=== PATIENT | male | born 1950 ===

== ENCOUNTER 2017-03-01 07:29 | Day surgery (SDC) | payer MEDICARE ==
[2017-02-26 08:03] VITALS: BMI 35.9
[2017-03-01] MEDS ORDERED: Iodixanol 320 MG/ML 100 ML BOTTLE IV ONE (10:09)
[2017-03-01] MEDS ORDERED: Midazolam 2 MG/2 ML VIAL ONE (10:17)
[2017-03-01] MEDS ORDERED: Lidocaine 2% Inj (20ml) ONE (10:22)
[2017-03-01 10:55] LABS: ARTERIAL BLOOD GAS HCO3 27.4 mmol/L (21-28); ARTERIAL BLOOD GAS HEMOGLOBIN 15.1 g/dL (11.7-17.4); ARTERIAL BLOOD GAS O2 SAT 95.1 % (95-98); ARTERIAL BLOOD GAS PCO2 44 mm/Hg (35-45); ARTERIAL BLOOD GAS PH 7.42 (7.35-7.45); ARTERIAL BLOOD GAS TCO2 29.9 mmol/L (22-28)
[2017-03-01 10:59] LABS: VENOUS BLOOD GAS BASE EXCESS 2.8 mmol/L (0.0-2.0); VENOUS BLOOD GAS PCO2 47 mmHg (40-60); VENOUS BLOOD PH 7.39 (7.32-7.43)
[2017-03-01 16:12] VITALS: BP 136/71; PULSE 88; RESP 18; TEMP 98; O2SAT 99
--- NOTE | 2017-03-28 05:36 | CARDCATH ---
PROCEDURE DATE: 03/01/2017 PROCEDURES: 1. Right and left heart catheterization. 2. Coronary angiogram. REFERRING PHYSICIAN: 1. Dr. Williams Barger. 2. Dr. Kieran Hoskins. PERFORMING PHYSICIAN: Dr. Fede Dosih. CLINICAL INDICATIONS: 1. Severe aortic stenosis. 2. Non-ischemic cardiomyopathy with ejection fraction of 20%. 3. Hypertension. 4. Hyperlipidemia. PROCEDURE: After informed consent, the patient was prepped and draped in the usual sterile fashion. A 2% lidocaine was given in the right groin for local anesthesia. Using micropuncture technique, 6-[place] sheath was introduced into the right common femoral artery and 7-[place] sheath was introduced into the right common vein. Using the usual diagnostic catheters and catheters, both right and left heart catheterization and coronary angiogram was performed. The patient tolerated the procedure well. FINDINGS: Findings of the left heart catheterization: 1. Left main coronary artery is patent. 2. Mid LAD has a 50% non-obstructive stenosis. Proximal, distal LAD and diagonal branches are patent. 3. Left circumflex is large, dominant and patent. 4. Right coronary artery is small, nondominant, but patent. 5. LV ejection fraction is approximately 20%. Dilated LV global hypokinesis EDP is 14. No gradient across the aortic valve. Findings of the right heart catheterization: PA pressure 29/15. Cardiac output 6.7 litre/minute. Cardiac index 3.3. CALCULATIONS: Gradient across the aortic valve is 46. Calculated aortic valve area is 0.9 sq. cm. IMPRESSION: 1. Normal non-obstructive coronaries. 2. Severe aortic stenosis with aortic valve area of 0.9 sq. cm. 3. Non-ischemic cardiomyopathy with ejection fraction of 20%. I recommend transcatheter aortic valve replacement. Fede Doshi MD
== END 2017-03-01 15:15 | disposition home or self-care (01) ==
LOC: C.CATHLAB 07:29
PROVIDERS: ATTEND Internal Medicine Cardiovascular Disease
DX: I42.9 Cardiomyopathy, unspecified (principal); I35.0 Nonrheumatic aortic (valve) stenosis; I10 Essential (primary) hypertension; E89.6 Postprocedural adrenocortical (-medullary) hypofunction
CPT/HCPCS: 36600; 82803; 93460; 94770; C1714; C1760; C1766; C1769; C1887; J1644; J2250; J3010; Q9967

== ENCOUNTER 2017-04-02 10:54 | Inpatient (IN) | payer MEDICARE ==
[2017-04-02 10:55] VITALS: BMI 35.9
[2017-04-02] MEDS ORDERED: Sodium Chloride 0.9% 1,000 ML IV ONE (11:44)
[2017-04-02 12:13] LABS: BASO # 0.1 K/uL (0.0-0.2); BASO % 0.9 % (0.0-2.0); EOS # 0.4 K/uL (0.0-0.7); EOS % 4.7 % (0.0-4.0); HEMOGLOBIN 13.9 g/dL (12.0-18.0); LYMPH # 1.6 K/uL (1.0-4.3); LYMPH % 19.8 % (20.0-40.0); MEAN CELL VOLUME 85.1 fL (80.0-94.0); MEAN CORPUSCULAR HEMOGLOBIN 28.2 pg (27.0-31.0); MEAN CORPUSCULAR HGB CONC 33.2 g/dL (33.0-37.0); MEAN PLATELET VOLUME 9.1 fL (7.2-11.7); MONO # 0.9 K/uL (0.0-0.8); MONO % 11.3 % (0.0-10.0); NEUT # 5.1 K/uL (1.8-7.0); NEUT % 63.3 % (50.0-75.0); RBC 4.9 Mil/uL (4.40-5.90); RED CELL DISTRIBUTION WIDTH 13.9 % (11.5-14.5)
[2017-04-02 12:21] LABS: ALBUMIN 3.7 g/dL (3.5-5.0); PROTHROMBIN TIME 11.4 SECONDS (9.7-12.2)
[2017-04-02 12:23] LABS: GFR AFRICAN-AMERICAN > 60; GFR NON-AFRICAN AMERICAN > 60
[2017-04-02 12:24] LABS: ALB/GLOB RATIO 1.1 (1.0-2.1); ALT/SGPT 27 U/L (21-72); AST/SGOT 19 U/L (17-59); BLOOD UREA NITROGEN 10 mg/dL (9-20); CALCIUM 8.3 mg/dl (8.6-10.4); LIPASE 66 U/L (23-300)
[2017-04-02 12:32] LABS: B-TYPE NATRIURETIC PEPTIDE 490 pg/mL (0-900)
[2017-04-02 12:37] LABS: SQUAMOUS EPITHIAL < 1 /hpf (0-5); URINE BILIRUBIN NEGATIVE (NEGATIVE); URINE BLOOD NEGATIVE (NEGATIVE); URINE CLARITY Clear (Clear); URINE COLOR Colorless (YELLOW); URINE GLUCOSE (UA) NORMAL (Normal); URINE LEUKOCYTE ESTERASE NEG Leu/uL (Negative); URINE NITRATE NEGATIVE (NEGATIVE); URINE PROTEIN NEGATIVE (NEGATIVE); URINE UROBILINOGEN NORMAL mg/dL (0.2-1.0)
--- NOTE | 2017-04-02 12:55 | C.PDOC ---
History Of Present Illness 67 year old male was referred to the ED by Dr. Doshi for complaints of abdominal pain for "more than a week." As per patient's , patient was seen on 2016 for abdominal pain and had outpatient CT scan, doctor was concerned and sent him back. Patient has a history of CHF and is experiencing SOB. Patient denies vomiting, diarrhea, or fever. Time Seen by Provider: 04/02/17 11:30 Chief Complaint (Nursing): Abdominal Pain History Per: Family ( ) History/Exam Limitations: no limitations Onset/Duration Of Symptoms: Days ("more than one week) Current Symptoms Are (Timing): Still Present Location Of Pain/Discomfort: Diffuse Radiation Of Pain To:: None Quality Of Discomfort: "Pain" Associated Symptoms: denies: Fever, Chills, Nausea, Vomiting, Diarrhea, Chest Pain Recent travel outside of the [place]: No Additional History Per: Prior Records Past Medical History Reviewed: Historical Data, Nursing Documentation, Vital Signs Vital Signs: Last Vital Signs Temp 98.7 F 04/02/17 16:06 Pulse 77 04/02/17 16:06 Resp 20 04/02/17 11:21 BP 108/66 04/02/17 16:06 Pulse Ox 94 L 04/02/17 16:30 - Medical History PMH: CHF, HTN, Peripheral Edema - [facility] Procedures LEFT HEART CARDIAC CATH (12/24/14) LT HEART ANGIOCARDIOGRAM (12/24/14) Family History: States: Unknown Family Hx - Social History Hx Tobacco Use: No Hx Alcohol Use: No Hx Substance Use: No - Immunization History Hx Tetanus Toxoid Vaccination: Yes Hx Influenza Vaccination: Yes Hx Pneumococcal Vaccination: No Review Of Systems Constitutional: Negative for: Fever, Chills Cardiovascular: Negative for: Chest Pain Respiratory: Positive for: Shortness of Breath. Negative for: Cough Gastrointestinal: Positive for: Abdominal Pain. Negative for: Nausea, Vomiting , Diarrhea Physical Exam - Physical Exam Appears: Non-toxic, No Acute Distress Skin: Warm, Dry Head: Atraumatic, Normacephalic Eye(s): bilateral: Normal Inspection, PERRL, EOMI Oral Mucosa: Moist Neck: Normal ROM, Supple Chest: Symmetrical, No Deformity Cardiovascular: Rhythm Irregular, Other (Systolic murmur ) Respiratory: Decreased Breath Sounds (bilateral bases ), No Rales Gastrointestinal/Abdominal: Soft, Tenderness (Bilateral lower quardrant tenderness to deep palpation ), No Distention, No Guarding, No Rebound Extremity: Normal ROM, No Tenderness, Capillary Refill (good capillary refill, less than 2 seconds ) Neurological/Psych: Oriented x3, Normal Speech, Normal Cognition, Normal Cranial Nerves, Normal Motor, Normal Sensation ED Course And Treatment - Laboratory Results Result Diagrams: 04/02/17 12:05 04/02/17 12:05 Lab Interpretation: No Acute Changes ECG: Interpreted By Me, Viewed By Me (and Dr Mendez) ECG Rhythm: Sinus Rhythm, 1st Degree HB ECG Interpretation: Abnormal Interpretation Of ECG: Sinus arrythmia with 1st degree AV block and PAC, LBBB O2 Sat by Pulse Oximetry: 94 (room air ) Pulse Ox Interpretation: Normal Progress Note: EKG and Urine culture were ordered. Patient was given IV fluids. Medical Decision Making Medical Decision Makin Dr Doshi in ED and wants patient admitted to medicine and GI consult with Dr White to do colonoscopy Williams Barger cardiology consult Contact Dr Hoskins for admission, orders placed for inpatient Disposition - Disposition Disposition: HOSPITALIZED Disposition Time: 12:53 Condition: STABLE - POA Present On Arrival: None - Clinical Impression Clinical Impression: Abnormal CT of the abdomen, Aortic stenosis, severe - Scribe Statement The provider has reviewed the documentation as recorded by the Scribe Benita Graves All medical record entries made by the Scribe were at my direction and personally dictated by me. I have reviewed the chart and agree that the record accurately reflects my personal performance of the history, physical exam, medical decision making, and the department course for this patient. I have also personally directed, reviewed, and agree with the discharge instructions and disposition. Decision To Admit - Pt Status Changed To: Hospital Disposition Of: Inpatient - Admit Certification Admit to Inpatient:: After my assessment, the patient will require hospitalization for at least two midnights. This is because of the severity of symptoms shown, intensity of services needed, and/or the medical risk in this patient being treated as an outpatient. - InPatient: Physician Admission Certification:: Patient with abnormal abdominal CT with 6-7 cm segment of sigmoid colon with circumferential mural thickening, concerning for neoplasm. Patient to be admitted for GI consult, colonoscopy and further workup - . Bed Request Type: Regular Admitting Physician: Rajinder Hoskins Patient Diagnosis: Abnormal CT of the abdomen, Aortic stenosis, severe
--- NOTE | 2017-04-02 16:33 | CP.PCM.CON ---
History of Present Illness - History of Present Illness History of Present Illness: 67 Male with Hx of Non ischemic Cardiomyopathy, Severe recently diagnosed with Cecal thickening on CT scan (Malignancy can't be exclueded) Presents with abdominal pain requiring hopsitalization. Also c/o intermittent chest pain Review Of Systems Except As Marked Skin: Abdominal pain, Nausea, chest pain Physical Exam - Physical Exam Appears: Well, Non-toxic, No Acute Distress Skin: Normal Color, Warm, Eye(s): bilateral: Normal Inspection, PERRL, EOMI Ear(s): Bilateral: Normal Nose: Normal Oral Mucosa: Moist, No Drooling, No Trismus Tongue: Normal Appearing, No Swelling Lips: Normal Appearing, No Swelling Throat: Normal, No Erythema, No Exudate Neck: Normal, Normal ROM, No Midline Cervical Tenderness, No Paracervical Tenderness Lymphatic: Normal Exam, No Adenopathy Chest: Symmetrical, No Tenderness Cardiovascular: Rhythm Regular, Systolic murmur Respiratory: Normal Breath Sounds, No Accessory Muscle Use, No Rales, No Rhonchi , No Wheezing Gastrointestinal/Abdominal: Normal Exam, Bowel Sounds (normal), Soft, No Tenderness Extremity: Normal ROM Neurological/Psych: Oriented x3, Normal Speech, Normal Cognition, Normal Cranial Nerves, Normal Motor, Normal Sensation Past Patient History - Past Medical History & Family History Past Medical History?: Yes - Past Social History Smoking Status: Never Smoked - CARDIAC Hx Congestive Heart Failure: Yes Hx Hypertension: Yes Hx Peripheral Edema: Yes - PULMONARY Hx Respiratory Disorders: No - NEUROLOGICAL Hx Neurological Disorder: No - HEENT Hx HEENT Problems: No - RENAL Hx Chronic Kidney Disease: No - ENDOCRINE/METABOLIC Hx Endocrine Disorders: No - HEMATOLOGICAL/ONCOLOGICAL Hx Blood Disorders: No - INTEGUMENTARY Hx Dermatological Problems: No - MUSCULOSKELETAL/RHEUMATOLOGICAL Hx Musculoskeletal Disorders: Yes Hx Osteoarthritis: Yes - GASTROINTESTINAL Hx Gastrointestinal Disorders: Yes Other/Comment: Takes Dicyclomin and Pantoprazole - GENITOURINARY/GYNECOLOGICAL Hx Genitourinary Disorders: No - PSYCHIATRIC Hx Substance Use: No - SURGICAL HISTORY Hx Surgeries: Yes Hx Cardiac Catheterization: Yes Other/Comment: HX:CYST FROM NECK - ANESTHESIA Hx Anesthesia: Yes Hx Anesthesia Reactions: No Hx Malignant Hyperthermia: No Meds Allergies/Adverse Reactions: Allergies Allergy/AdvReac Type Severity Reaction Status Date / Time pollen Allergy Uncoded 04/02/17 11:26 - Medications Medications: Current Medications Sodium Chloride (Sodium Chloride 0.9%) 1,000 mls @ 100 mls/hr IV .Q10H ONE Stop: 04/02/17 21:43 Last Admin: 04/02/17 12:57 Dose: 100 mls/hr Results - Vital Signs Recent Vital Signs: Last Vital Signs Temp 98.7 F 04/02/17 16:06 Pulse 77 04/02/17 16:06 Resp 20 04/02/17 11:21 BP 108/66 04/02/17 16:06 Pulse Ox 95 04/02/17 16:06 - Labs Result Diagrams: 04/02/17 12:05 04/02/17 12:05 Assessment & Plan - Assessment and Plan (Free Text) Assessment: 67 Male with abdominal pain, nausea and possible GI malignancy likely to undergo Colonoscopy Stable Non ischemic Cardiomyopathy. EF 20-30% Severe (Mild to no symptoms) Needs Colonoscopy under concious sedation Likely cardiac risk for this procedure is not high but can be considered moderate How ever this patient requires this procedure to r/o Mailignancy, Hence likely benefit high compared to risk Recommend to proceed with the needed Colonoscopy Avoid fluid overload D/W Patient, his and GI attending
--- NOTE | 2017-04-02 16:39 | CP.PCM.CON ---
History of Present Illness - History of Present Illness History of Present Illness: Asked to see pt today. is present Abdom pain, colon mass Abdom pain- 1 week- lower, sharp, worse with BM PMH: cardiomyopathy, CHF Review of Systems - Constitutional Constitutional: Fatigue. absent: Fever, Weight Gain - EENT Eyes: absent: Photophobia Nose/Mouth/Throat: absent: Dysphagia - Cardiovascular Cardiovascular: absent: Dyspnea - Respiratory Respiratory: absent: Hemoptysis, Wheezing - Gastrointestinal Gastrointestinal: Abdominal Pain, Constipation, Temesmus. absent: Hematochezia , Melena, Vomiting - Genitourinary Genitourinary: absent: Hematuria - Musculoskeletal Musculoskeletal: absent: Muscle Cramps - Integumentary Integumentary: absent: Jaundice - Neurological Neurological: absent: Convulsions, Memory Loss Past Patient History - Past Medical History & Family History Past Medical History?: Yes - Past Social History Smoking Status: Never Smoked - CARDIAC Hx Congestive Heart Failure: Yes Hx Hypertension: Yes Hx Peripheral Edema: Yes - PULMONARY Hx Respiratory Disorders: No - NEUROLOGICAL Hx Neurological Disorder: No - HEENT Hx HEENT Problems: No - RENAL Hx Chronic Kidney Disease: No - ENDOCRINE/METABOLIC Hx Endocrine Disorders: No - HEMATOLOGICAL/ONCOLOGICAL Hx Blood Disorders: No - INTEGUMENTARY Hx Dermatological Problems: No - MUSCULOSKELETAL/RHEUMATOLOGICAL Hx Musculoskeletal Disorders: Yes Hx Osteoarthritis: Yes - GASTROINTESTINAL Hx Gastrointestinal Disorders: Yes Other/Comment: Takes Dicyclomin and Pantoprazole - GENITOURINARY/GYNECOLOGICAL Hx Genitourinary Disorders: No - PSYCHIATRIC Hx Substance Use: No - SURGICAL HISTORY Hx Surgeries: Yes Hx Cardiac Catheterization: Yes Other/Comment: HX:CYST FROM NECK - ANESTHESIA Hx Anesthesia: Yes Hx Anesthesia Reactions: No Hx Malignant Hyperthermia: No Meds Allergies/Adverse Reactions: Allergies Allergy/AdvReac Type Severity Reaction Status Date / Time pollen Allergy Uncoded 04/02/17 11:26 - Medications Medications: Current Medications Sodium Chloride (Sodium Chloride 0.9%) 1,000 mls @ 100 mls/hr IV .Q10H ONE Stop: 04/02/17 21:43 Last Admin: 04/02/17 12:57 Dose: 100 mls/hr Physical Exam - Constitutional Appears: Well - Respiratory Exam Respiratory Exam: Clear to Auscultation Bilateral - Cardiovascular Exam Cardiovascular Exam: RRR - GI/Abdominal Exam GI & Abdominal Exam: Normal Bowel Sounds, Soft. absent: Guarding Additional comments: mild LLQ tenderness - Extremities Exam Extremities exam: Negative for: calf tenderness - Neurological Exam Neurological exam: Alert, Oriented x3 Results - Vital Signs Recent Vital Signs: Last Vital Signs Temp 98.7 F 04/02/17 16:06 Pulse 77 04/02/17 16:06 Resp 20 04/02/17 11:21 BP 108/66 04/02/17 16:06 Pulse Ox 94 L 04/02/17 16:30 - Labs Result Diagrams: 04/02/17 12:05 04/02/17 12:05 Assessment & Plan - Assessment and Plan (Free Text) Assessment: 1) ABdom pain- LLQ.: Likely due to colon mass 2) Colon MAss - on CT- r/o malignancy 3) CHF 4) Cardiomyopathy 5) Hyperglycemia Okd by cardiology for colonosocpy tomorrow.
[2017-04-02] MEDS ORDERED: Peg-Electrolyte Oral Soln 4L (Golytely) PO ONE (18:00)
--- NOTE | 2017-04-02 19:30 | CP.PCM.HP ---
History of Present Illness - History of Present Illness History of Present Illness: Patient came to the emergency room with abdominal pain. Patient started having sudden onset of pain over the left lower quadrant, associated with the blood in the stools. Patient did not have any nausea vomiting. Patient had a some irregular bowel movements for at least a month. As an outpatient patient underwent a CAT scan of the abdomen. CAT scan of the abdomen showing evidence of some suspected sigmoid mass lesion Symptoms he is also having constipation. Occasionally he sees some blood. In the past patient was refusing to do a colonoscopy. Patient did not have any colonoscopy so far. He's having no appetite. Poor appetite and some weight loss noted. Denies any nausea, no vomiting. History present illness: 66-year-old male with history of hypertension, suspected hypercholesteremia, and also suspected GEORGINA, but the did not have any study done came to the office with complaining of right knee pain.Patient also has a history of severe aortic stenosis, and the patient was refusing to have any surgical intervention for that He denies any other major active symptoms. Past medical history: Hypertension hypercholesterolemia, GEORGINA, aortic stenosis. Osteoarthritis. Surgical history none Allergies no known drug allergy Family history noncontributory Review of system noted from the chart Review of systems: He denies any headache, he denies any visual symptoms no chest pain noted, denies any shortness of breath. No abdominal symptoms. Denies any asthma in the past. Complaining of no leg pain in the past, no leg swelling. Temp Pulse Resp BP Pulse Ox 98.3 F 77 20 125/77 94 L 04/02/17 16:46 04/02/17 16:46 04/02/17 16:46 04/02/17 16:46 04/02/17 18:11 On examination: HEENT PERRLA, neck supple No thyromegaly was noted and no cervical adenopathy noted Chest bilateral good air entry, no wheezing or rales noted CVS regular heart sound, no murmur Abdomen soft and no organomegaly Abdomen tenderness in the left lower quadrant region noted Extremities no pedal edema, no leg swelling, pedal pulses are good. 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 Assessment and recommendation: 66-year-old male with history of hypertension, hypercholesteremia, and suspected GEORGINA came to the office with a possible right knee pain. In may opinion patient has a possible medial collateral ligament tear and associated meniscal tear possible. Patient possibly has some intra-abdominal process possible colonic obstruction, and associated colitis. Underlying neoplastic process cannot be ruled out. Patient will need for colonoscopy. Currently patient is stable otherwise. Given the severe aortic stenosis patient will need a cardiology clearance. Spoke to the current GI And GI evaluation. Will follow the patient Present on Admission - Present on Admission Any Indicators Present on Admission: No History of DVT/PE: No History of Uncontrolled Diabetes: No Urinary Catheter: No Decubitus Ulcer Present: No Past Patient History - Past Medical History & Family History Past Medical History?: Yes - Past Social History Smoking Status: Never Smoked - CARDIAC Hx Congestive Heart Failure: Yes Hx Hypertension: Yes Hx Peripheral Edema: Yes - PULMONARY Hx Respiratory Disorders: No - NEUROLOGICAL Hx Neurological Disorder: No - HEENT Hx HEENT Problems: No - RENAL Hx Chronic Kidney Disease: No - ENDOCRINE/METABOLIC Hx Endocrine Disorders: No - HEMATOLOGICAL/ONCOLOGICAL Hx Blood Disorders: No - INTEGUMENTARY Hx Dermatological Problems: No - MUSCULOSKELETAL/RHEUMATOLOGICAL Hx Musculoskeletal Disorders: Yes Hx Osteoarthritis: Yes - GASTROINTESTINAL Hx Gastrointestinal Disorders: Yes Other/Comment: Takes Dicyclomin and Pantoprazole - GENITOURINARY/GYNECOLOGICAL Hx Genitourinary Disorders: No - PSYCHIATRIC Hx Substance Use: No - SURGICAL HISTORY Hx Surgeries: Yes Hx Cardiac Catheterization: Yes Other/Comment: HX:CYST FROM NECK - ANESTHESIA Hx Anesthesia: Yes Hx Anesthesia Reactions: No Hx Malignant Hyperthermia: No Meds Allergies/Adverse Reactions: Allergies Allergy/AdvReac Type Severity Reaction Status Date / Time pollen Allergy Uncoded 04/02/17 11:26 Results - Vital Signs Recent Vital Signs: Last Vital Signs Temp 98.3 F 04/02/17 16:46 Pulse 77 04/02/17 16:46 Resp 20 04/02/17 16:46 BP 125/77 04/02/17 16:46 Pulse Ox 94 L 04/02/17 18:11 - Labs Result Diagrams: 04/02/17 12:05 04/02/17 12:05
--- NOTE | 2017-04-02 20:21 | CARD ---
APPROVED REPORT EKG Measurement Heart [id number] [place] [id number] <Conclusion> Sinus rhythm with 1st degree AV block with fusion complexes and premature atrial complexes with aberrant conduction Left axis deviation Left bundle branch block Abnormal ECG
[2017-04-03] MEDS ORDERED: Sacubitril/Valsartan 24-26mg Tab PO SCH (10:00)
[2017-04-03] MEDS ORDERED: Pantoprazole 40 mg EC Tab PO SCH (10:00)
[2017-04-03] MEDS ORDERED: Etomidate 20 mg/10ml Inj IV ONE (13:16)
[2017-04-03] MEDS ORDERED: Midazolam 2 MG/2 ML VIAL ONE (13:16)
[2017-04-03 16:23] VITALS: BP 122/68; RESP 20; TEMP 97.5; O2SAT 95
[2017-04-03 18:19] VITALS: PULSE 78
--- NOTE | 2017-04-03 20:39 | CP.PCM.DIS ---
Provider - Provider Date of Admission: 04/02/17 12:56 Attending physician: Rajinder Hosknis MD Time Spent in preparation of Discharge (in minutes): 45 Hospital Course - Lab Results Lab Results: Most Recent Lab Values WBC 8.0 K/uL (4.8-10.8) 04/02/17 12:05 RBC 4.90 Mil/uL (4.40-5.90) 04/02/17 12:05 Hgb 13.9 g/dL (12.0-18.0) 04/02/17 12:05 Hct 41.7 % (35.0-51.0) 04/02/17 12:05 MCV 85.1 fL (80.0-94.0) 04/02/17 12:05 MCH 28.2 pg (27.0-31.0) 04/02/17 12:05 MCHC 33.2 g/dL (33.0-37.0) 04/02/17 12:05 RDW 13.9 % (11.5-14.5) 04/02/17 12:05 Plt Count 264 K/uL (130-400) 04/02/17 12:05 MPV 9.1 fL (7.2-11.7) 04/02/17 12:05 Neut % (Auto) 63.3 % (50.0-75.0) 04/02/17 12:05 Lymph % (Auto) 19.8 % (20.0-40.0) L 04/02/17 12:05 [place] % (Auto) 11.3 % (0.0-10.0) H 04/02/17 12:05 Eos % (Auto) 4.7 % (0.0-4.0) H 04/02/17 12:05 Baso % (Auto) 0.9 % (0.0-2.0) 04/02/17 12:05 Neut # 5.1 K/uL (1.8-7.0) 04/02/17 12:05 Lymph # 1.6 K/uL (1.0-4.3) 04/02/17 12:05 [place] # 0.9 K/uL (0.0-0.8) H 04/02/17 12:05 Eos # 0.4 K/uL (0.0-0.7) 04/02/17 12:05 Baso # 0.1 K/uL (0.0-0.2) 04/02/17 12:05 PT 11.4 SECONDS (9.7-12.2) 04/02/17 12:05 INR 1.0 04/02/17 12:05 APTT 30 SECONDS (21-34) 04/02/17 12:05 Sodium 141 mmol/L (132-148) 04/02/17 12:05 Potassium 3.9 mmol/L (3.6-5.2) 04/02/17 12:05 Chloride 102 mmol/L (98-107) 04/02/17 12:05 Carbon Dioxide 25 mmol/L (22-30) 04/02/17 12:05 Anion Gap 19 (10-20) 04/02/17 12:05 BUN 10 mg/dL (9-20) 04/02/17 12:05 Creatinine 0.6 MG/DL (0.8-1.5) L 04/02/17 12:05 Est GFR ( Amer) > 60 04/02/17 12:05 Est GFR (Non-Af Amer) > 60 04/02/17 12:05 Random Glucose 120 mg/dL (75-110) H 04/02/17 12:05 Calcium 8.3 mg/dl (8.6-10.4) L 04/02/17 12:05 Total Bilirubin 0.5 mg/dL (0.2-1.3) 04/02/17 12:05 AST 19 U/L (17-59) 04/02/17 12:05 ALT 27 U/L (21-72) 04/02/17 12:05 Alkaline Phosphatase 88 U/L (38-126) 04/02/17 12:05 Troponin I < 0.0120 ng/mL (0.00-0.120) 04/02/17 12:05 NT-Pro-B Natriuret Pep 490 pg/mL (0-900) 04/02/17 12:05 Total Protein 7.1 g/dL (6.3-8.3) 04/02/17 12:05 Albumin 3.7 g/dL (3.5-5.0) 04/02/17 12:05 Globulin 3.4 gm/dL (2.2-3.9) 04/02/17 12:05 Albumin/Globulin Ratio 1.1 (1.0-2.1) 04/02/17 12:05 Lipase 66 U/L (23-300) 04/02/17 12:05 Urine Color Colorless (YELLOW) 04/02/17 12:26 Urine Clarity Clear (Clear) 04/02/17 12:26 Urine pH 7.0 (5.0-8.0) 04/02/17 12:26 Ur Specific [place] 1.003 (1.003-1.030) 04/02/17 12:26 Urine Protein Negative mg/dL (NEGATIVE) 04/02/17 12:26 Urine Glucose (UA) Normal mg/dL (Normal) 04/02/17 12:26 Urine Ketones Negative mg/dL (NEGATIVE) 04/02/17 12:26 Urine Blood Negative (NEGATIVE) 04/02/17 12:26 Urine Nitrate Negative (NEGATIVE) 04/02/17 12:26 Urine Bilirubin Negative (NEGATIVE) 04/02/17 12:26 Urine Urobilinogen Normal mg/dL (0.2-1.0) 04/02/17 12:26 Ur Leukocyte Esterase Neg Christianne/uL (Negative) 04/02/17 12:26 Urine WBC (Auto) < 1 /hpf (0-5) 04/02/17 12:26 Ur Squamous Epith Cells < 1 /hpf (0-5) 04/02/17 12:26 - Hospital Course Hospital Course: 66-year-old male with history of hypertension, hypercholesterolemia, obstructive sleep apnea, severe aortic stenosis and bilateral knee arthritis admitted to the hospital with the acute abdominal pain, and nausea vomiting. Earlier CAT scan of the abdomen showing evidence of sigmoid colon lesion. GI evaluation was attempted under called. Patient given the history of severe aortic stenosis it was decided to admit the patient, and get inpatient colonoscopy. Today patient underwent a colonoscopic evaluation, patient is currently having nearly obstructing sigmoid: Mass. Patient will need a complete surgical intervention as soon as possible. Patient is having severe aortic stenosis, and the heart disease, and he will need clearance for the management. 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 Patient wanted to go home today. We'll encourage the patient to have a liquid diet. Patient will follow-up in my office in 2 days. Patient will need a cardiac workup, management by cardiology, and the following that he will need a surgical intervention. Possibly patient will be transferred to or advised to go to tertiary center for further management. Family understand and agreed for the plan. Will be discharged home today. Discharge Plan - Follow Up Plan Condition: STABLE Disposition: HOME/ ROUTINE Instructions: Aortic Stenosis (DC) Referrals: Rajinder Hoskins MD [Staff Provider] -
--- NOTE | 2017-04-03 22:55 | CP.PCM.PN ---
Subjective - Date & Time of Evaluation Date of Evaluation: 04/03/17 Time of Evaluation: 16:30 - Subjective Subjective: Patient with Obstructive Sigmoid mass likely needs surgery Patient has severe and low EF Plan to transfer the patient to [facility] for urgent TAVR followed by GI surgery Unfortunately Patient refuses to stay in the hospital Will continue to persue Objective - Vital Signs/Intake and Output Vital Signs (last 24 hours): Temp Pulse Resp BP Pulse Ox 97.5 F L 78 20 122/68 95 04/03/17 16:20 04/03/17 18:16 04/03/17 16:20 04/03/17 16:20 04/03/17 16:20 Intake and Output: 04/03/17 04/04/17 18:59 06:59 Intake Total 740 Balance 740 - Labs Labs: PT 11.4 SECONDS (9.7-12.2) 04/02/17 12:05 INR 1.0 04/02/17 12:05 APTT 30 SECONDS (21-34) 04/02/17 12:05
== END 2017-04-03 19:10 | disposition home or self-care (01) | DRG 375 ==
LOC: C.ER 10:54 → C.9E 12:56 → C.5T 15:22
PROVIDERS: ADMIT Internal Medicine; ATTEND Internal Medicine
PROC: 0DBN8ZX Excision of Sigmoid Colon, Via Natural or Artificial Opening Endoscopic, Diagnostic (ICD-10-PCS; principal; 2017-04-03 13:15)
DX: C18.7 Malignant neoplasm of sigmoid colon (principal); I42.9 Cardiomyopathy, unspecified; I11.0 Hypertensive heart disease with heart failure; I50.9 Heart failure, unspecified; R73.9 Hyperglycemia, unspecified; K59.00 Constipation, unspecified; E78.00 Pure hypercholesterolemia, unspecified; I35.0 Nonrheumatic aortic (valve) stenosis; G47.33 Obstructive sleep apnea (adult) (pediatric); M17.0 Bilateral primary osteoarthritis of knee

== ENCOUNTER 2018-11-10 09:56 | Outpatient (CLI) | payer MEDICARE | END 2018-11-10 09:57 | disposition home or self-care (01) | LOC: C.LAB 09:56 | DX: R73.01 Impaired fasting glucose (principal) ==

== ENCOUNTER 2018-11-26 13:38 | Outpatient (CLI) | payer MEDICARE | END 2018-11-26 13:39 | disposition home or self-care (01) | LOC: C.RADIC 13:38 | DX: J20.9 Acute bronchitis, unspecified (principal) ==

== ENCOUNTER 2019-01-09 14:43 | Emergency (ER) | payer MEDICARE ==
[2019-01-09 14:56] VITALS: BMI 33.9
[2019-01-09 15:00] VITALS: BP 105/62; PULSE 99; RESP 18; TEMP 99.1; O2SAT 97
[2019-01-09] MEDS ORDERED: Lidocaine 5% Patch TD STA (15:34)
[2019-01-09] MEDS ORDERED: Lidocaine 5% Patch TD ONE (15:47)
--- NOTE | 2019-01-09 16:17 | RAD ---
Date of service: 01/09/2019 PROCEDURE: Cervical Spine Radiographs. HISTORY: Pain. COMPARISON: 08/21/2017. TECHNIQUE: 3 views obtained. FINDINGS: BONES: There is normal alignment of the cervical vertebral bodies. There straightening of the cervical spine with loss of normal cervical lordosis. There is no acute fracture or spondylolisthesis. The craniocervical junction is normal. There is mild degenerative osteoarthrosis at the atlantoaxial joint. DISC SPACES: There is multilevel degenerative disc disease from C4-5 to C6-7 with anterior osteophytes, reduced disc heights and multilevel facet arthropathy. SOFT TISSUES: Normal. No prevertebral soft tissue swelling. OTHER FINDINGS: None. IMPRESSION: No acute fracture or spondylolisthesis. Multilevel degenerative disc disease from C4-5 to C6-7. Straightening of the cervical spine may be positional or related to muscle spasm.
--- NOTE | 2019-01-09 16:39 | C.PDOC ---
History Of Present Illness 68-year-old male, with past medical history of multiple medical problems, presents to the ED for evaluation of left-sided neck pain which began upon waking up 3 days ago. Patient reports pain with turning his head. He has tried taking a muscle relaxant and 500 mg Tylenol without improvement. Patient denies any trauma to the area, headache, nausea, vomiting, or extremity numbness/weakness. pt takes eliquis Time Seen by Provider: 01/09/19 15:07 Chief Complaint (Nursing): Upper Extremity Problem/Injury History Per: Patient History/Exam Limitations: no limitations Onset/Duration Of Symptoms: Days (3) Current Symptoms Are (Timing): Still Present Quality: "Pain" Exacerbating Factor(s): Movement Additional History Per: Patient Past Medical History Reviewed: Historical Data, Nursing Documentation, Vital Signs Vital Signs: Last Vital Signs Temp 99.1 F 01/09/19 14:56 Pulse 99 H 01/09/19 14:56 Resp 18 01/09/19 14:56 BP 105/62 01/09/19 14:56 Pulse Ox 97 01/09/19 14:56 Primary Care Provider: Rajinder Hoskins - Medical History PMH: Cardia Arrhythmia, CHF, Gastritis, HTN, Peripheral Edema Denies: Chronic Kidney Disease Surgical History: No Surg Hx - [facility] Procedures LEFT HEART CARDIAC CATH (12/24/14) LT HEART ANGIOCARDIOGRAM (12/24/14) Family History: States: Unknown Family Hx - Social History Hx Tobacco Use: No Hx Alcohol Use: No Hx Substance Use: No - Immunization History Hx Tetanus Toxoid Vaccination: Yes Hx Influenza Vaccination: Yes Hx Pneumococcal Vaccination: No Review Of Systems Constitutional: Negative for: Fever, Chills Gastrointestinal: Negative for: Nausea, Vomiting Musculoskeletal: Positive for: Neck Pain (left-sided ) Neurological: Negative for: Weakness, Numbness, Headache Physical Exam - Physical Exam Appears: Non-toxic, No Acute Distress, Other (uncomfortable, head hunched down ) Skin: Normal Color, Warm, Dry Head: Atraumatic, Normacephalic Eye(s): bilateral: Normal Inspection Oral Mucosa: Moist Neck: Decreased ROM (slight, secondary to pain ), No Midline Cervical Tenderness, Supple, Other (left paracervical muscle spasm palpated ) Chest: Symmetrical, No Deformity, No Tenderness Cardiovascular: Rhythm Regular, No Murmur Respiratory: Normal Breath Sounds, No Rales, No Rhonchi, No Wheezing Extremity: Normal ROM (bilateral upper and lower extremities ), Capillary Refill (less than 2 seconds ) Pulses: Left Radial: Normal, Right Radial: Normal Neurological/Psych: Oriented x3, Normal Speech, Normal Cognition, Normal Motor, Normal Sensation Gait: Steady ED Course And Treatment O2 Sat by Pulse Oximetry: 97 (on RA) Pulse Ox Interpretation: Normal Medical Decision Making Medical Decision Making: Impression: 68 year old male with left-sided neck pain Plan: * Tylenol PO * Flexeril PO * Lidoderm TD * reassess and disposition Progress: Tylenol PO, Flexeril PO, and Lidoderm patch administered. xray reviewed; no acute fractures, djd noted, straightening associated with spasm. Case was discussed with patient's PMD, Dr. Hoskins. p[t to f/u next week with him. Disposition Discussed With .: Rajinder Hoskins Doctor Will See Patient In The: Office Counseled Patient/Family Regarding: Studies Performed, Diagnosis, Need For Followup, Rx Given - Disposition Referrals: Rajinder Hoskins MD [Staff Provider] - Disposition: HOME/ ROUTINE Disposition Time: 16:43 Condition: GOOD Additional Instructions: Remove patch in 12 hours. Warm or cold compresses. Tylenol 1000 mg by mouth every 6 hours. cyclobenzaprine up to thriee times a day- makes oyu sleepy- be careful. Follow up with Dr Hoskins next week. Prescriptions: Acetaminophen [Tylenol Extra Strength] 1,000 mg PO TID #30 tablet Cyclobenzaprine [Cyclobenzaprine HCl] 5 mg PO Q8 #9 tab Instructions: Muscle Spasms (DC) Forms: [facility] (Spanish), General Discharge Instructions - Clinical Impression Clinical Impression: Neck muscle spasm - PA / YOU[employer] TE[employer]ER / Resident Statement MD/DO has reviewed & agrees with the documentation as recorded. - Scribe Statement The provider has reviewed the documentation as recorded by the Scribe (Alicia Delgado) All medical record entries made by the Scribe were at my direction and personally dictated by me. I have reviewed the chart and agree that the record accurately reflects my personal performance of the history, physical exam, medical decision making, and the department course for this patient. I have also personally directed, reviewed, and agree with the discharge instructions and disposition.
== END 2019-01-09 17:09 | disposition home or self-care (01) ==
LOC: C.ER 14:43
DX: M62.838 Other muscle spasm (principal)